=== PATIENT | male | born 1995 | race African-American/Black ===

== ENCOUNTER 2019-08-01 19:33 | Emergency (ER) | payer OTHER ==
[~2019-08-01] VITALS: Ht 167.6 cm; Wt 63.6 kg
[2019-08-01 19:34] VITALS: BP 131/73
[2019-08-01] MEDS ORDERED: AUGMENTIN 875 MG TAB PO ONE (20:30)
[2019-08-01] MEDS ORDERED: AUGM875T28 PO (20:38)
[2019-08-02] MEDS ORDERED: AMOX875T2 PO (02:06)
== END 2019-08-01 20:43 | disposition home or self-care (01) ==
LOC: M ED 19:33
DX: J32.0 Chronic maxillary sinusitis (principal); H66.92 Otitis media, unspecified, left ear

== ENCOUNTER 2019-08-02 00:32 | Observation (INO) | payer OTHER ==
[~2019-08-02] VITALS: Ht 167.6 cm; Wt 62.0 kg
[~2019-08-02 00:32] MED LIST: AUGM875T28 PO
[2019-08-02] MEDS ORDERED: AMOX875T2 PO (02:06)
--- NOTE | 2019-08-02 02:28 | HPEPDOC ---
[facility] Medical History & Physical Date of Admission Aug 02, 2019 Date of Service: Aug 02, 2019 Attending Physician: GISSELLE LEONARDO MD History and Physical CHIEF COMPLAINT: Shortness of breath and cough HISTORY OF PRESENT ILLNESS: 24-year-old male with no significant past medical hi story presents with shortness of breath. His symptoms began 1 week ago, has an associate of cough productive of sputum along with pleuritic chest pain with deep inspiration and coughing. He presented to the emergency department earlier today with shortness of breath, was sent home on antibiotics but returns with worsening dyspnea. He denies any sick contacts, no recent travel. He has no additional complaints other than was listed above. He denies any nausea, vomiting, diarrhea, constipation or fever. 10 point review of system is negative except for above PAST MEDICAL HISTORY: 1. None. PAST SURGICAL HISTORY: 1. Appendectomy. SOCIAL HISTORY: Denies smoking. Denies alcohol use. Denies drug use FAMILY HISTORY: Positive for heart disease ALLERGIES: Please see below. HOME MEDICATIONS: Please see below. PHYSICAL EXAMINATION: VITAL SIGNS: Please see below. GENERAL: No distress HEENT: Normocephalic, atraumatic, moist mucous membranes NECK: Supple CARDIOVASCULAR EXAMINATION: S1, S2, no murmurs RESPIRATORY EXAMINATION: Scattered rhonchi, no wheezing ABDOMINAL EXAMINATION: Soft, nontender, nondistended, positive bowel sounds EXTREMITIES: Range of motion intact SKIN: No rash NEUROLOGICAL EXAMINATION: Alert and oriented 3, no focal deficits PSYCHIATRIC EXAMINATION: Calm and cooperative LABORATORY DATA: See below. IMAGING: Chest x-ray showing patchy infiltrates MICROBIOLOGY: Please see below. ASSESSMENT: 24-year-old male with no significant past medical history is being admitted for pneumonia. PLAN: 1. Pneumonia. Symptoms consistent with pneumonia, x-ray showing patchy infiltrates, ceftriaxone/doxycycline, cultures pending. Vital Signs Vital Signs Date Time Temp Pulse Resp B/P (MAP) Pulse Ox O2 Delivery O2 Flow Rate FiO2 08/02/19 00:32 98.1 87 20 122/70 (87) 97 Room Air Laboratory Data Labs 24H Laboratory Tests 2 08/02/19 01:29: POC pH (Misc Panel) 7.375, POC Base Excess (Misc Panel) 2.0, POC Saturated Percent O2 (Misc) 93L, POC pO2 (Misc Panel) 69.0L, POC pCO2 (Misc Panel) 46.1H, POC HCO3 (Misc Panel) 26.9H, POC Total CO2 (Misc Panel) 28.0H Home Medications Scheduled Amoxicillin/Potassium Clav (Amox-Clav 875-125 mg Tablet) 1 Each Tablet, 1 TAB PO BID written 08/01/19 for 10 days patient has not picked up yet Allergies Coded Allergies: No Known Allergies (Unverified , 08/01/19) A-FIB/CHADSVASC A-FIB History Current/History of A-Fib/PAF?: No GISSELLE LEONARDO MD Aug 02, 2019 02:28
[2019-08-02 03:07] LABS: BASO # 0.1 10^3/uL (0.0-0.2); BASO % 0.8 % (0.0-1.0); EOS # 0.6 10^3/uL (0.0-0.5); EOS % 8.8 % (0.0-3.0); HEMATOCRIT 50.4 % (42.0-52.0); HEMOGLOBIN 17.4 g/dl (13.5-17.5); LYMPH # 2.1 10^3/uL (1.5-5.0); LYMPH % 32.2 % (24.0-44.0); MEAN CORPUSCULAR HEMOGLOBIN 31.8 pg (27.0-33.0); MEAN CORPUSCULAR HGB CONC 34.5 g/dl (32.0-36.5); MONO # 0.6 10^3/uL (0.0-0.8); MONO % 8.9 % (0.0-5.0); NEUTROPHILS # 3.3 10^3/uL (1.5-8.5); NEUTROPHILS % 49.1 % (36.0-66.0); PLATELET COUNT, AUTOMATED 240 10^3/uL (150-450); RED BLOOD COUNT 5.48 10^6/uL (4.30-6.10); WHITE BLOOD COUNT 6.6 10^3/uL (4.0-10.0)
[2019-08-02 03:25] LABS: BLOOD UREA NITROGEN 7 MG/DL (7-18); CALCIUM LEVEL 9.2 MG/DL (8.5-10.1); CARBON DIOXIDE LEVEL 34 MEQ/L (21-32); CHLORIDE LEVEL 101 MEQ/L (98-107); CK-MB VALUE MASS 1.3 NG/ML (<3.6); CPK CREATINE PHOSPHOKINASE 188 U/L (39-308); CREATININE FOR GFR 1.04 MG/DL (0.70-1.30); GLOMERULAR FILTRATION RATE > 60.0 (>60); GLUCOSE, FASTING 75 MG/DL (70-100); LDH LACTATE DEHYDROGENASE 204 U/L (87-241); MB/CK RELATIVE INDEX 0.69 (< OR =4); POTASSIUM SERUM 3.8 MEQ/L (3.5-5.1); SODIUM LEVEL 136 MEQ/L (136-145); TROPONIN I < 0.02 NG/ML (< 0.10)
[2019-08-02] MEDS: cefTRIAXone SOD 1 GM in D5W MINI-BAG PLUS 50 ML IV SCH (03:35)
[2019-08-02 04:45] VITALS: BP 131/83
[2019-08-02] MEDS: DOXYCYCLINE HYCLATE 100MG TABLET PO SCH ×2 (08:24→20:09)
--- NOTE | 2019-08-02 11:37 | REP ---
Single view chest: 08/02/2019. Indication: Dyspnea. Comparison: None. Findings: The lungs are clear. There is no pleural effusion or pneumothorax. The cardiac silhouette is unremarkable. Impression: Clear lungs. Electronically Signed by Jamir Wallis DO 08/02/2019 11:28 A
--- NOTE | 2019-08-02 12:31 | IPNPDOC ---
Text Note Date of Service The patient was seen on 08/02/19. NOTE Subjective: Patient seen and examined at bedside. No acute overnight events. Feels his shortness of breath is still problematic, but improving. No other medical complaints. Objective: General; NAD, lying comfortably in bed HEENT: NC/AT, EOMI Lungs: coarse breath sounds Abd: soft, NT, +BS Ext: no edema A/P: 24-year-old male with no significant past medical history is being admitted for pneumonia. # possible Pneumonia. x-ray showing patchy infiltrates, currently on ceftriaxone/doxycycline, cultures pending. - ct chest for further evaluation - IS/acapella #pericarditis - currently on colchicine/NSAID #DVT prophylaxis - not indicated VS,Fishbone, I+O VS, Fishbone, I+O Laboratory Tests 08/02/19 02:46 Vital Signs Date Time Temp Pulse Resp B/P (MAP) Pulse Ox O2 Delivery O2 Flow Rate FiO2 08/02/19 04:45 98.6 70 20 131/83 (99) 93 Room Air I&O- Last 24 Hours up to 6 AM 08/02/19 06:00 Intake Total 170 ml Output Total 0 ml Balance 170 ml MO SCHNEIDER MD Aug 02, 2019 12:31
[2019-08-02] MEDS ORDERED: ISOVUE-370 76% 100ML VIAL As Ordered ONE (12:50)
[2019-08-02 14:00] VITALS: BP 130/82
--- NOTE | 2019-08-02 16:57 | REP ---
CT chest: 08/02/2019. Indication: Dyspnea. Technique: Axial CT images of the chest were obtained following IV administration of iodinated contrast with coronal and sagittal reconstructions provided. Comparison: No previous chest CTs are available for direct comparison. Findings: The lungs are clear. There is no pleural effusion or pneumothorax. The mediastinal and cardiac anatomy is normal. No vascular abnormalities are detected. The chest wall is unremarkable as well. Impression: Unremarkable chest CT. Electronically Signed by Jamir Wallis DO 08/02/2019 04:49 P
[2019-08-02 21:29] VITALS: BP 124/76
[2019-08-02] MEDS ORDERED: COLCHICINE 0.6 MG TAB PO ONE (22:15)
[2019-08-02] MEDS: IBUPROFEN 600MG TAB PO PRN (22:33)
[2019-08-03] MEDS: cefTRIAXone SOD 1 GM in D5W MINI-BAG PLUS 50 ML IV SCH (03:43)
[2019-08-03 06:07] VITALS: BP 105/56
[2019-08-03 06:40] LABS: HEMATOCRIT 48.7 % (42.0-52.0); HEMOGLOBIN 16.8 g/dl (13.5-17.5); MEAN CORPUSCULAR HEMOGLOBIN 31.2 pg (27.0-33.0); MEAN CORPUSCULAR HGB CONC 34.5 g/dl (32.0-36.5); MEAN CORPUSCULAR VOLUME 90.4 fl (80.0-96.0); PLATELET COUNT, AUTOMATED 225 10^3/uL (150-450); RED BLOOD COUNT 5.39 10^6/uL (4.30-6.10); WHITE BLOOD COUNT 5.2 10^3/uL (4.0-10.0)
[2019-08-03 07:02] LABS: ALBUMIN 3.9 GM/DL (3.2-5.2); ALT/SGPT 26 U/L (12-78); BLOOD UREA NITROGEN 14 MG/DL (7-18); CALCIUM LEVEL 9.4 MG/DL (8.5-10.1); CARBON DIOXIDE LEVEL 29 MEQ/L (21-32); CHLORIDE LEVEL 102 MEQ/L (98-107); CREATININE FOR GFR 1.08 MG/DL (0.70-1.30); GLOMERULAR FILTRATION RATE > 60.0 (>60); GLUCOSE, FASTING 84 MG/DL (70-100); MAGNESIUM LEVEL 2.2 MG/DL (1.8-2.4); POTASSIUM SERUM 4.4 MEQ/L (3.5-5.1); SODIUM LEVEL 136 MEQ/L (136-145); TOTAL PROTEIN 7.9 GM/DL (6.4-8.2)
[2019-08-03] MEDS: COLCHICINE 0.6 MG TAB PO SCH (08:56)
[2019-08-03] MEDS: DOXYCYCLINE HYCLATE 100MG TABLET PO SCH (08:56)
[2019-08-03] MEDS: IBUPROFEN 600MG TAB PO PRN (12:50)
[2019-08-03 14:00] VITALS: BP 121/67
--- NOTE | 2019-08-03 15:25 | IPNPDOC ---
Date Seen The patient was seen on 08/03/19. Progress Note SUBJECTIVE: Patient was seen and examined this morning. He was admitted for a possible pneumonia although imaging has been negative. Per the patient he had a respiratory tract infection that had started about a week ago. He had presented to the ER at that time and was prescribed antibiotics for a possible sinus infection. 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 He came to [facility] for chest discomfort and some shortness of breath. He states that he has sharp pain over the left side of his chest. He is unsure if leaning forward makes this pain worse however states that it is increased with deep breath. Additionally he has admitted to some loose stools overnight. There have otherwise been no adverse events reported OBJECTIVE PHYSICAL EXAMINATION: VITAL SIGNS: Please see below. GENERAL: Awake, alert, and oriented. Appears in no acute distress. Lying in bed HEENT: Atraumatic. Normocephalic. Eyes are nonicteric. Trachea is midline. Mucous membranes are pink and moist CARDIOVASCULAR: Normal S1, S2. regular rate and rhythm. No clicks rubs or murmurs. RESPIRATORY: Clear vesicular breath sounds bilaterally. No wheezes, rhonchi, or rales. Symmetric chest expansion ABDOMINAL: soft, nondistended. Nontender. Normoactive bowel sounds EXTREMITIES: No edema. Full and equal pulses in bilateral upper and lower extremities NEUROLOGICAL: No focal neurological deficits PSYCHOLOGICAL: Mood and affect appear appropriate LABORATORY DATA, IMAGING STUDIES, MICROBIOLOGY: Please see below. Echocardiogram: Pending DVT prophylaxis ordered?: TEDs/Sequentials ASSESSMENT AND PLAN: Patient is a 24 year old male who presented to the [facility] ER with complaint of shortness of breath and chest pain. He was treated for pnuemonia on presentation PROBLEMS: 1. Chest Pain and Shortness of breath 2/2 Viral Pericarditis -Patient had complained of subjective shortness of breath. He has never been hypoxic or required supplemental oxygen. He does have chest pain that is described as sharp. His symptoms are unlikely to be pneumonia and more consistent with Pericarditis likely from a viral URI which is consistent with the history that he provides -No leukocytosis, afebrile, procalcitonin of 0.02. Bacterial pneumonia is unlikely. Antibiotics will be discontinued -Colchicine and Ibuprofen to be continued as ordered by night team -EKG negative. Troponins negative. Echocardiogram pending 2. DVT Prophylaxis DISPOSITION: Likely discharge in 24 hours pending clinical improvement As preceptor for this patient I was fully available. All aspects of the patient interview, examination, medical decision making process, and medical care plan development were reviewed and approved. Aware and concur with the plan as stated in the body of this note and will attest to such by my cosignature. VS, I&O, 24H, Fishbone Vital Signs/I&O Vital Signs Date Time Temp Pulse Resp B/P (MAP) Pulse Ox O2 Delivery O2 Flow Rate FiO2 08/03/19 06:07 97.8 62 17 105/56 (72) 98 Room Air I&O- Last 24 Hours up to 6 AM 08/03/19 05:59 Intake Total 2370 ml Output Total 0 ml Balance 2370 ml Laboratory Data 24H LABS Laboratory Tests 2 08/03/19 06:20: Nucleated Red Blood Cells % (auto) 0.0, Anion Gap 5L, Glomerular Filtration Rate > 60.0, Calcium Level 9.4, Magnesium Level 2.2, Total Bilirubin 1.0, Aspartate Amino Transf (AST/SGOT) 31, Alanine Aminotransferase (ALT/SGPT) 26, Alkaline Phosphatase 103, Total Protein 7.9, Albumin 3.9, Albumin/Globulin Ratio 1.0 CBC/BMP Laboratory Tests 08/03/19 06:20 Microbiology Microbiology 08/02/19 Blood Culture - Preliminary, Resulted No growth after 24 hours . All specim... 08/02/19 Respiratory Virus Panel (PCR) (TOBIAS) - Final, Complete DARCIE THOMAS DO Aug 03, 2019 15:24 MO SCHNEIDER MD Aug 10, 2019 12:28
[2019-08-03 20:44] VITALS: BP 122/66
--- NOTE | 2019-08-03 21:06 | ECGEPIP ---
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
--- NOTE | 2019-08-03 23:17 | ECHO ---
DATE OF PROCEDURE: 08/03/2019 REFERRING PHYSICIAN: Dr. Myles INDICATION: Pericardial chest pain. Height 167 cm, weight 62 kg. DIMENSIONS: IVS: 1.0 LV: 3.7 LVPW: 0.9 LA: 2.7 Aorta: 2.5 IVC: 1.2 Mitral E wave velocity: 72 A wave: 48 E prime septal: 11.3 E prime lateral: 13.1 FINDINGS: The study is of excellent technical quality. The patient is in sinus rhythm. Normal left ventricular (LV) size and normal LV systolic function, estimated left ventricular ejection fraction (LVEF) 60-65%. Right ventricle is also normal size and systolic function. Both atria appear normal. All four cardiac valves were well seen and appear normal. No pericardial effusion is noted. Inferior vena cava is normal size and appropriately collapses with respiration indicative of normal central venous pressure. Aortic root, aortic arch and visualized segment of abdominal aorta all appear normal. Doppler interrogation reveals competent mitral and aortic valves. There is trace tricuspid and trace pulmonic insufficiency. Calculated pulmonary artery pressure is within normal limits. Mitral inflow pattern and tissue Doppler imaging of mitral annulus revealed normal diastolic function. CONCLUSIONS: 1. Study is of excellent technical quality, the patient is in sinus rhythm. 2. Normal LV size, systolic and diastolic function. 3. No significant valvular disease. 4. Normal central venous pressure and normal pulmonary artery pressure. 5. No pericardial effusion. 6. Normal echocardiogram.
[2019-08-04 05:46] VITALS: BP 118/66
[2019-08-04] MEDS: COLCHICINE 0.6 MG TAB PO SCH (08:02)
[2019-08-04 08:45] LABS: HEMATOCRIT 48.6 % (42.0-52.0); HEMOGLOBIN 17.2 g/dl (13.5-17.5); MEAN CORPUSCULAR HEMOGLOBIN 31.9 pg (27.0-33.0); MEAN CORPUSCULAR HGB CONC 35.4 g/dl (32.0-36.5); MEAN CORPUSCULAR VOLUME 90.2 fl (80.0-96.0); PLATELET COUNT, AUTOMATED 226 10^3/uL (150-450); RED BLOOD COUNT 5.39 10^6/uL (4.30-6.10)
[2019-08-04 09:06] LABS: BLOOD UREA NITROGEN 10 MG/DL (7-18); C REACTIVE PROTEIN QUANTITATIV < 0.30 MG/DL (0.00-0.30); CALCIUM LEVEL 8.9 MG/DL (8.5-10.1); CARBON DIOXIDE LEVEL 29 MEQ/L (21-32); CHLORIDE LEVEL 104 MEQ/L (98-107); CREATININE FOR GFR 1.08 MG/DL (0.70-1.30); GLOMERULAR FILTRATION RATE > 60.0 (>60); GLUCOSE, FASTING 87 MG/DL (70-100); POTASSIUM SERUM 4.2 MEQ/L (3.5-5.1); SODIUM LEVEL 138 MEQ/L (136-145)
[2019-08-04] MEDS ORDERED: IBUP200C25 PO (11:22)
[2019-08-04] MEDS ORDERED: COLC1TAB13 PO (11:22)
[2019-08-04] MEDS ORDERED: PROT1TAB2 PO (11:22)
--- NOTE | 2019-08-04 21:48 | DS.PDOC ---
Discharge Summary General Date of Admission Aug 02, 2019 at 02:09 Date of Discharge 08/04/2019 Specialist/Consultants Involve: PAUL FOREMAN MD Discharge Summary PROCEDURES PERFORMED DURING STAY: [None]. ADMITTING DIAGNOSES: 1. Pericarditis DISCHARGE DIAGNOSES: 1. Pericarditis COMPLICATIONS/CHIEF COMPLAINT: Pneumonia. HISTORY OF PRESENT ILLNESS: Patient is a 24 year old male who presented to the [facility] ER with complaint of shortness of breath and chest pain. He had presented to Urgent care for upper respiratory type symptoms and was told that he may have a sinus infection. He stated that he never picked up the antibiotics however, soon developed shortness of breath and chest pain. He described the chest pain as sharp. He denied any improvement of the pain with leaning forward. On presentation to the ER the patient was vitally stable. His labs were unremarkable. Hospitalist service was consulted and the patient was admitted for further evaluation and management HOSPITAL COURSE: During the patients hospitalization he was started on empiric antibiotics. The patient symptoms were not felt to be from pneumonia and more likely a pericarditis likely from a previous URI. The patient was started on colchicine and ibuprofen. In the subsequent days he noted improvement in his symptoms. He received an echocardiogram which was unremarkable. He was discharged home with recommendations to continue colchicine and ibuprofen for 4 weeks and to get reevaluated by Cardiology and his PCP at that time DISCHARGE MEDICATIONS: Please see below. ALLERGIES: Please see below. PHYSICAL EXAMINATION ON DISCHARGE: VITAL SIGNS: Please see below. GENERAL: Awake, alert, and oriented. Appears in no acute distress. Lying in bed HEENT: Atraumatic. Normocephalic. Eyes are nonicteric. Trachea is midline. Mucous membranes are pink and moist CARDIOVASCULAR: Normal S1, S2. regular rate and rhythm. No clicks rubs or murmurs. RESPIRATORY: Clear vesicular breath sounds bilaterally. No wheezes, rhonchi, or rales. Symmetric chest expansion ABDOMINAL: soft, nondistended. Nontender. Normoactive bowel sounds EXTREMITIES: No edema. Full and equal pulses in bilateral upper and lower extremities NEUROLOGICAL: No focal neurological deficits PSYCHOLOGICAL: Mood and affect appear appropriate LABORATORY DATA: Please see below. IMAGING: Single view chest: 08/02/2019. Indication: Dyspnea. Comparison: None. Findings: The lungs are clear. There is no pleural effusion or pneumothorax. The cardiac silhouette is unremarkable. Impression: Clear lungs. Electronically Signed by Jamir Wallis DO 08/02/2019 11:28 CT chest: 08/02/2019. Indication: Dyspnea. Technique: Axial CT images of the chest were obtained following IV administration of iodinated contrast with coronal and sagittal reconstructions provided. Comparison: No previous chest CTs are available for direct comparison. Findings: The lungs are clear. There is no pleural effusion or pneumothorax. The mediastinal and cardiac anatomy is normal. No vascular abnormalities are detected. The chest wall is unremarkable as well. Impression: Unremarkable chest CT. Electronically Signed by Jamir Wallis DO 08/02/2019 04:49 P DATE OF PROCEDURE: 08/03/2019 REFERRING PHYSICIAN: Dr. Myles INDICATION: Pericardial chest pain. Height 167 cm, weight 62 kg. DIMENSIONS: IVS: 1.0 LV: 3.7 LVPW: 0.9 LA: 2.7 Aorta: 2.5 IVC: 1.2 Mitral E wave velocity: 72 A wave: 48 E prime septal: 11.3 E prime lateral: 13.1 FINDINGS: The study is of excellent technical quality. The patient is in sinus rhythm. Normal left ventricular (LV) size and normal LV systolic function, estimated left ventricular ejection fraction (LVEF) 60-65%. Right ventricle is also normal siz e and systolic function. Both atria appear normal. All four cardiac valves were well seen and appear normal. No pericardial effusion is noted. Inferior vena cava is normal size and appropriately collapses with respiration indicative of normal central venous pressure. Aortic root, aortic arch and visualized segment of abdominal aorta all appear normal. Doppler interrogation reveals competent mitral and aortic valves. There is trace tricuspid and trace pulmonic insufficiency. Calculated pulmonary artery pressure is within normal limits. Mitral inflow pattern and tissue Doppler imaging of mitral annulus revealed normal diastolic function. CONCLUSIONS: 1. Study is of excellent technical quality, the patient is in sinus rhythm. 2. Normal LV size, systolic and diastolic function. 3. No significant valvular disease. 4. Normal central venous pressure and normal pulmonary artery pressure. 5. No pericardial effusion. 6. Normal echocardiogram. PROGNOSIS: GOOD ACTIVITY: [As tolerated]. DIET: Tolerated DISCHARGE PLAN: Patient is to be discharged home. He is to continue Colchicine and ibuprofen for 4 weeks. He is to start Protonix daily during that time for GI prophylaxis. He is to follow-up with his PCP. Recommendations for referral to Cardiology for potential extended treatment for his pericarditis and/or repeat echocardiogram if clinically appropriate DISPOSITION: 01 Home, Self-Care. DISCHARGE CONDITION: [Stable]. TIME SPENT ON DISCHARGE: Greater than 35 minutes. Vital Signs/I&Os Vital Signs Date Time Temp Pulse Resp B/P (MAP) Pulse Ox O2 Delivery O2 Flow Rate FiO2 08/04/19 05:46 97.8 62 18 118/66 (83) 96 Room Air I&O- Last 24 Hours up to 6 AM 08/04/19 05:59 Intake Total 1740 ml Output Total 1550 ml Balance 190 ml Laboratory Data Labs 24H Laboratory Tests 2 08/04/19 08:16: Nucleated Red Blood Cells % (auto) 0.0, Anion Gap 5L, Glomerular Filtration Rate > 60.0, Calcium Level 8.9, C-Reactive Protein, Quantitative < 0.30 CBC/BMP Laboratory Tests 08/04/19 08:16 Microbiology Microbiology 08/02/19 Blood Culture - Preliminary, Resulted No Growth after 48 hours. All Specime... 08/02/19 Respiratory Virus Panel (PCR) (TOBIAS) - Final, Complete Discharge Medications Scheduled Colchicine (Colchicine) 0.6 Mg Tablet, 0.6 MG PO DAILY Take 1 Tab Daily for 4 weeks. Ibuprofen (Ibuprofen) 200 Mg Capsule, 200 MG PO BID Take 1 capsule twice a day Pantoprazole Sodium (Protonix) 40 Mg Tablet.dr, 40 MG PO DAILY Take 1 tab daily for 4 weeks Allergies Coded Allergies: No Known Allergies (Unverified , 08/01/19) GME ATTESTATION GME ATTESTATION My faculty preceptor for this patient encounter was physically present during the encounter and was fully available. All aspects of the patient interview, examination, medical decision making process, and medical care plan development were reviewed and approved by the faculty preceptor. The faculty preceptor is aware and concurs with the plan as stated in the body of this note and will attest to such by his/her cosignature. ATTENDING NOTE PT WAS SEEN AND EXAMINED BY ME, AGREE WITH THE ABOVE ASSESSMENT AND PLAN. DARCIE THOMAS DO Aug 04, 2019 21:48 PAUL FOREMAN MD Aug 07, 2019 14:16
== END 2019-08-04 13:30 | disposition home or self-care (01) ==
LOC: M ED 00:32 → M ED INP 02:09 → ENRESERV 04:17 → M MS5PR 04:45
PROVIDERS: ADMIT Internal Medicine; ATTEND Internal Medicine
DX: I30.9 Acute pericarditis, unspecified (principal); J18.9 Pneumonia, unspecified organism
CPT/HCPCS: 36415; 36600; 71045; 71260; 80048; 80053; 82550; 82553; 82803; 83615; 83735; 84145; 84484; 85025; 85027; 85379; 86140; 87040; 87486; 87581; 87633; 87798; 93005; 93306; 96365; 96366; 99284; J0696; Q9967

== ENCOUNTER 2020-03-08 02:14 | Emergency (ER) | payer OTHER ==
[~2020-03-08] VITALS: Ht 167.6 cm; Wt 60.8 kg
[~2020-03-08 02:14] MED LIST changes: +AMOX875T2 PO; +COLC0.6T47 PO; +IBUP200C25 PO; +PROT1TAB2 PO
--- OUTSIDE RECORDS SUMMARY | 2020-03-08 02:23 | CCD | Continuity of Care Document ---
Author Author Crow SOMERS MD Organization Unknown Address [place] [address] Phone [phone] Care Team Providers Care Diversity Intern Name Role Phone DeisimartinBrooks PA-C AUTM [phone] Problems Active Problems Provider Date Precordial pain Storm Somers MD Onset: 11/23/2019 Electrocardiogram abnormal Storm Somers MD Onset: 2019 First degree atrioventricular block Storm Somers MD Onse t: 11/23/2019 Dyspnea Storm Somers MD Onset: 11/23/2019 Social History Type Date Description Comments Sex Unknown ETOH Use Does not consume alcohol Tobacco Use Start: Unknown Patient has never smoked Smoking Status Reviewed: 11/23/19 Patient has never smoked Exercise Type/Frequency Fully active: Ab le to carry on all performance without restriction PT 5x weekly Exercise Limitations Shortness Of Breath Exercise Limitations Chest Pain Allergies, Adverse Reactions, Alerts Description No Known Drug Allergies Medications Active Medications SIG Qnty Indications Ordering Provide r Date Meloxicam 15mg Tablets 1 by mouth every day 30tabs R07.2 Storm Somers MD 11/23/[address] 1 by mouth every day 30caps R07.2 Storm Somers MD 11/23/2019 History Medications No Active Medications Unknown 06/2019 - 11/23/2019 Immunizations Description No Information Available Vital Signs Date Vital Result Comment 01/04/2020 8:08am Weight 128.00 lb Height 66 inches 5'6" BMI (Body Mass Index) 20.7 kg/m2 Heart Rate 72 /min regular Respiratory Rate 16 /min BP Systolic Sitting 103 mmHg Medium cuff, Ra BP Diastolic Sitting 56 mmHg Medium cuff, Ra BP Systolic Lying Down 92 mmHg BP Diastolic Lying Down 56 mmHg 11/23/2019 11:29am Weight 141.00 lb Height 66 inches 5'6" BMI (Body Mass Index) 22.8 kg/m2 Heart Rate 76 /min regular Respiratory Rate 16 /min BP Systolic Sitting 112 mmHg Medium cuff, Ra; 110 /74 LA BP Diastolic Sitting 72 mmHg Medium cuff, Ra; 11 0/74 LA BP Systolic Lying Down 108 mmHg Rad BP Diastolic Lying Down 68 mmHg Rad O2 % BldC Oximetry 97 % O2 Saturation Level with Exercise 98 % Results Test Acquired Date Facility Test Result H/L Range Note CBC W/Auto Differential 11/23/2019 [facility] Hemoglobin Blood 15.9 Hematocrit 46.7 MCV (Corpuscular Volume) 92.6 MCH (Corpuscular Hemoglobin) 31.4 MCHC (Corpuscular Hemog Conc) 34.0 RDW 14.0 Platelet Count Blood Auto CNT 211 MPV 8.1 Neutrophils 31.8 Fluid Bands -- Fluid Lymphocytes 53.0 Monocytes 11.5 Fluid Body Eosinophils 2.90 Basophils % 0.80 Absolute Basophils 0.00 Absolute Eosinophils 0.10 Absolute Lymphocytes 2.30 Absolute Monocytes 0.50 Absolute Neutrophils Auto CNT 1.40 Laboratory test finding 11/23/2019 [facility] Sedimentation Rate 1 Teresa & Rheumatoid Factor 11/23/2019 [facility] Rheumatoid Factor Ser QN NEGATIVE Basic Metabolic Panel 08/04/2019 [facility] - not interfac ed (315)- - Glucose 87 83-110 Blood Urea Nitrogen 10 7-18 Creatinine 1.08 0.70-1.30 Sodium 138 136-145 Potassium 4.2 3.5-5.1 Chloride 106 98-107 Carbon Dioxide 29 21-32 Calcium 8.9 8.2-9.6 GFR (Calculated) >60.0 >32 Laboratory test finding 08/04/2019 [facility] - not interf aced (315)- - C-Reactive Protein <0.30 CBC without Differential 08/04/2019 [facility] - not inter faced (315)- - White Blood Count 5.0 4.0-10.0 Red Blood Count 5.39 4.30-6.10 Platelets 226 172-450 Hemoglobin 17.2 Hematocrit 48.6 Procedures Date Code Description Status 12/16/2019 29412 Treadmill/Pharmacological Monito ring Completed 11/23/2019 31604 ECG 12-Lead Completed Medical Devices Description No Information Available Encounters Type Date Location Provider Dx Diagnosis Office Visit 01/04/2020 8:00a Main Office Storm Somers MD R07.2 Precordial pain R06.00 Dyspnea, unspecified I44.0 Atrioventricular block, firs t degree R94.31 Abnormal electrocardiogram [ ECG] [EKG] Office Visit 11/23/2019 11:00a Main Office Storm Somers MD R07.2 Precordial pain R06.02 Shortness of breath I44.0 Atrioventricular block, firs t degree R94.31 Abnormal electrocardiogram [ ECG] [EKG] Assessments Date Code Description Provider 01/04/2020 R07.2 Precordial pain Storm Somers MD 01/04/2020 R06.00 Dyspnea, unspecified Storm saldana MD 01/04/2020 I44.0 Atrioventricular block, first Trujillo MD 01/04/2020 R94.31 Abnormal electrocardiogram [ECG] [EKG] Storm Somers MD 12/16/2019 R07.2 Precordial pain Stress Nuclear/R eg Treadmill 12/16/2019 R06.00 Dyspnea, unspecified Stress Nucl ear/Reg Treadmill 12/16/2019 R94.31 Abnormal electrocardiogram [ECG] [EKG] Stress Nuclear/Reg Treadmill 12/16/2019 I44.0 Atrioventricular block, first de herminia Stress Nuclear/Reg Treadmill 11/23/2019 R07.2 Precordial pain Storm Somers MD 11/23/2019 R06.02 Shortness of breath Storm lai MD 11/23/2019 I44.0 Atrioventricular block, first Cassandra MD 11/23/2019 R94.31 Abnormal electrocardiogram [ECG] [EKG] Storm Somers MD Plan of Treatment 01/04/2020 - Storm Somers MD* R07.2 Precordial pain* Recommendations:* With the negative results of his inflammatory blood work, his prognosis is favor able. In the absence of any pericardial rub or sign of tamponade, and localized chest wall tenderness, I would not be inclined to use prednisone. Would continue with symptomatic therapy. His prognosis is favorable. * R06.00 Dyspnea, unspecified* Recommendations:* As per assessment #1. * I44.0 Atrioventricular block, first degree* Recommendations:* No special measures or restrictions would be deemed necessary. * R94.31 Abnormal electrocardiogram [ECG] [EKG]* Recommendations:* As per assessment #3. * All * Comments:* Thank you for allowing me to participate in the care of your patient. Best regards. * Follow up:* We have not scheduled a specific followup appointment for him here but would be pleased to reassess him at any time. Functional Status Functional Condition Comment Date Status Independent with all ADL's Activ e Mental Status Description No Information Available Referrals Refer to Dr Reason for Referral Status Appt Date Storm Somers MD 1 CLT AUTH VALID 08/01/19 - 01/28/20. [place] Cre at[facility] [address] [place] [address] [id number] [phone] Storm Somers MD 3 OV VALID 08/01/19 - 07/31/20. [place] Created [id number] [facility] [id number] [phone]
--- OUTSIDE RECORDS SUMMARY | 2020-03-08 02:24 | CCD | Continuity of Care Document ---
Author Author Stress Nuclear/Reg Treadmill , Crow Cerda Organization Unknown Address [address] [facility], [place] [address] Phone [phone] Care Team Providers Care Creative/Art Director Name Role Phone Brooks Jordan PA-C AUTM [phone] Problems Active Problems Provider Date Precordial pain [...] Available Vital Signs Date Vital Result Comment 11/23/2019 11:29am Weight 141.00 lb Height 66 [...] Date Facility Test Result H/L Range Note Basic Metabolic Panel 08/04/2019 [facility] - not interfac ed (315)- - Glucose 87 83-110 Blood Urea Nitrogen 10 7-18 Creatinine 1.08 0.70-1.30 Sodium 138 136-145 Potassium 4.2 3.5-5.1 Chloride 106 98-107 Carbon Dioxide 29 21-32 Calcium 8.9 8.2-9.6 GFR (Calculated) >60.0 >32 Laboratory test finding 08/04/2019 [facility] - not interf aced (315)- - C-Reactive Protein <0.30 CBC without Differential 08/04/2019 [facility] - not inter faced (315)- - White Blood Count 5.0 4.0-10.0 Red Blood Count 5.39 4.30-6.10 Platelets 226 172-450 Hemoglobin 17.2 Hematocrit 48.6 Procedures Date Code Description Status 12/16/2019 00648 Treadmill/Pharmacological Monito ring Completed 11/23/2019 97233 ECG 12-Lead Completed Medical Devices Description No Information Available Encounters Type Date Location Provider Dx Diagnosis Office Visit 11/23/2019 11:00a Main Office Storm Somers MD R07.2 Precordial pain R06.02 Shortness of breath I44.0 Atrioventricular block, firs t degree R94.31 Abnormal electrocardiogram [ ECG] [EKG] Assessments Date Code Description Provider 12/16/2019 R07.2 Precordial pain Stress Nuclear/R eg Treadmill 12/16/2019 R06.00 Dyspnea, unspecified Stress Nucl ear/Reg Treadmill 12/16/2019 R94.31 Abnormal electrocardiogram [ECG] [EKG] Stress Nuclear/Reg Treadmill 12/16/2019 I44.0 Atrioventricular block, first de gree Stress Nuclear/Reg Treadmill 11/23/2019 R07.2 Precordial pain Storm Somers MD 11/23/2019 R06.02 Shortness of breath Storm lai MD 11/23/2019 I44.0 Atrioventricular block, first de gree Storm Somers MD 11/23/2019 R94.31 Abnormal electrocardiogram [ECG] [EKG] Storm Somers MD Plan of Treatment Future Appointment(s):* 01/04/2020 8:00 am - Storm Somers MD at Main Office 11/23/2019 - Storm Somers MD* R07.2 Precordial pain* New Medication:* Meloxicam 15 mg - 1 by mouth every day * Omeprazole 40 mg - 1 by mouth every day * New Labs:* CBC W/Auto Differential, Scheduled: 11/23/19 * Sedimentation Rate, Scheduled: 11/23/19 * Teresa & Rheumatoid Factor, Scheduled: 11/23/19 * Recommendations:* Have recommended follow-up complete blood count, sedimentation rate, and screen for inflammatory arthritic disease. Would encourage temporarily avoiding upper extremity exercise i.e. push-ups or weight lifting. Have prescribed a trial of meloxicam 15 mg daily with GI prophylaxis omeprazole 40 mg daily. * R06.02 Shortness of breath* Recommendations:* As per assessment #1. * I44.0 Atrioventricular block, first degree* Recommendations:* Have suggested a treadmill study to assess the functional integrity of antegrade AV conduction. * R94.31 Abnormal electrocardiogram [ECG] [EKG]* Recommendations:* In the absence of coronary risk factors, I suspect his stress study will confirm a favorable coronary prognosis. With his recent normal echocardiographic findin gs, we know his prominent precordial voltage is related to his age; not left ventricular hypertrophy. * All * Comments:* I will ensure that the aforementioned test findings are reported to you along with any further recommendations. Thank you for allowing me to participate in the care of your patient. Best regards. * Follow up:* Pending test findings, have suggested a follow-up Clinic visit with EKG in 1 month to assess the efficacy of his new anti-inflammatory regimen. Functional Status Functional Condition Comment Date Status Independent with all ADL's Activ e Mental Status Description No Information Available Referrals Refer to Reason for Referral Status Appt Date Storm Somers MD 1 CLT AUTH VALID 08/01/19 - 01/28/20. [place] [address] [place] [phone] Storm Somers MD 3 OV VALID 08/01/19 - 07/31/20. [place] [address] [place] [phone]
--- OUTSIDE RECORDS SUMMARY | 2020-03-08 02:24 | CCD | Continuity of Care Document ---
Author Author Crow SOMERS MD Organization Unknown Address [facility] [place] [address] Phone [phone] Care Team Providers Care Ethylene Plant Operator Name Role Phone DeisimartinBrooks PA-C AUTM [phone] Problems Active Problems Provider Date Precordial pain [...] Ser QN NEGATIVE Basic Metabolic Panel 08/04/2019 [facility] - not interfac ed (315)- - Glucose 87 83-110 Blood Urea Nitrogen 10 7-18 Creatinine 1.08 0.70-1.30 Sodium 138 136-145 Potassium 4.2 3.5-5.1 Chloride 106 98-107 Carbon Dioxide 29 21-32 Calcium 8.9 8.2-9.6 GFR (Calculated) >60.0 >32 Laboratory test finding 08/04/2019 [facility] - not interf aced (315)- - C-Reactive Protein <0.30 CBC without Differential 08/04/2019 [facility] - not inter faced (315)- - White Blood Count 5.0 4.0-10.0 Red Blood Count 5.39 4.30-6.10 Platelets 226 172-450 Hemoglobin 17.2 Hematocrit 48.6 Procedures Date Code Description Status 12/16/2019 13754 Treadmill/Pharmacological Monito ring Completed 11/23/2019 33281 ECG 12-Lead Completed Medical Devices Description No [...] saldana MD 01/04/2020 I44.0 Atrioventricular block, first Cassandra MD 01/04/2020 R94.31 Abnormal electrocardiogram [ECG] [EKG] Storm Somers MD 12/16/2019 R07.2 Precordial pain Stress Nuclear/R eg Treadmill 12/16/2019 R06.00 Dyspnea, unspecified Stress Nucl ear/Reg Treadmill 12/16/2019 R94.31 Abnormal electrocardiogram [ECG] [EKG] Stress Nuclear/Reg Treadmill 12/16/2019 I44.0 Atrioventricular block, first michaud Stress Nuclear/Reg Treadmill 11/23/2019 R07.2 Precordial pain [...] VALID 08/01/19 - 01/28/20. [place] [address] [facility] [id number] [phone] Storm Somers MD 3 OV VALID 08/01/19 - 07/31/20. [place] [address] [facility] [id number] [phone]
--- OUTSIDE RECORDS SUMMARY | 2020-03-08 02:24 | CCD ---
Author Author [facility] Organization [facility] Address Unknown Phone Unavailable Care Team Providers Care Cement Gun Operator Name Role Phone Vitaliy ANTUNEZ MD Unavailable Unavailable Vitaliy ANTUNEZ MD Unavailable Unavailable Vitaliy ANTUNEZ MD Unavailable Unavailable Vitaliy ANTUNEZ MD Unavailable Unavailable Vitaliy ANTUNEZ MD Unavailable Unavailable Vitaliy ANTUNEZ MD Unavailable Unavailable Vitaliy ANTUNEZ MD Unavailable Unavailable Vitaliy ANTUNEZ MD Unavailable Unavailable Vitaliy ANTUNEZ MD Unavailable Unavailable Vitaliy ANTUNEZ MD Unavailable Unavailable Vitaliy ANTUNEZ MD Unavailable Unavailable Vitaliy ANTUNEZ MD Unavailable Unavailable Vitaliy ANTUNEZ MD Unavailable Unavailable Vitaliy ANTUNEZ MD Unavailable Unavailable Vitaliy ANTUNEZ MD Unavailable Unavailable Vitaliy ANTUNEZ MD Unavailable Unavailable Vitaliy ANTUNEZ MD Unavailable Unavailable Vitaliy ANTUNEZ MD Unavailable Unavailable Vitaliy ANTUNEZ MD Unavailable Unavailable Vitaliy ANTUNEZ MD Unavailable Unavailable Vitaliy ANTUNEZ MD Unavailable Unavailable Vitaliy ANTUNEZ MD Unavailable Unavailable Vitaliy ANTUNZE MD Unavailable Unavailable Vitaliy ANTUNEZ MD Unavailable Unavailable Vitaliy ANTUNEZ MD Unavailable Unavailable Vitaliy ANTUNEZ MD Unavailable Unavailable Vitaliy ANTUNEZ MD Unavailable Unavailable Vitaliy ANTUNEZ MD Unavailable Unavailable Vitaliy ANTUNEZ MD Unavailable Unavailable Vitaliy ANTUNEZ MD Unavailable Unavailable Vitaliy ANTUNEZ MD Unavailable Unavailable Vitaliy ANTUNEZ MD Unavailable Unavailable Vitaliy ANTUNEZ MD Unavailable Unavailable Vitaliy ANTUNEZ MD Unavailable Unavailable Vitaliy ANTUNEZ MD Unavailable Unavailable Vitaliy ANTUNEZ MD Unavailable Unavailable Vitaliy ANTUNEZ MD Unavailable Unavailable Vitaliy ANTUNEZ MD Unavailable Unavailable Vitaliy ANTUNEZ MD Unavailable Unavailable ANTUNEZ, E CAHRLES MD Unavailable Unavailable ANTUNEZ, E CHARLES MD Unavailable Unavailable ANTUNEZ, E CHARLES MD Unavailable Unavailable ANTUNEZ, E CHARLES MD Unavailable Unavailable ANTUNEZ, E CHARLES MD Unavailable Unavailable ANTUNEZ, E CHARLES MD Unavailable Unavailable ANTUNEZ, E CHARLES MD Unavailable Unavailable ANTUNEZ, E CHARLES MD Unavailable Unavailable ANTUNEZ, E CHARLES MD Unavailable Unavailable ANTUNEZ, E CHARLES MD Unavailable Unavailable ANTUNEZ, E CHARLES MD Unavailable Unavailable ANTUNEZ, E CHARLES MD Unavailable Unavailable ANTUNEZ, E CHARLES MD Unavailable Unavailable ANTUNEZ, E CHARLES MD Unavailable Unavailable ANTUNEZ, E CHARLES MD Unavailable Unavailable ANTUNEZ, E CHARLES MD Unavailable Unavailable ANTUNEZ, E CHARLES MD Unavailable Unavailable ANTUNEZ, E CHARLES MD Unavailable Unavailable Re-disclosure Warning The records that you are about to access may contain information from federally-assisted alcohol or drug abuse programs. If such information is present, then the following federally mandated warning applies: This information has been disclosed to you from records protected by federal confidentiality rules (42 CFR part 2). The federal rules prohibit you from making any further disclosure of this information unless further disclosure is expressly permitted by the written consent of the person to whom it pertains or as otherwise permitted by 42 CFR part 2. A general authorization for the release of medical or other information is NOT sufficient for this purpose. The Federal rules restrict any use of the information to criminally investigate or prosecute any alcohol or drug abuse patient.The records that you are about to access may contain highly sensitive health information, the redisclosure of which is protected by Article 27-F of the [facility] Public Health law. If you continue you may have access to information: Regarding HIV / AIDS; Provided by facilities licensed or operated by the [facility] Office of Mental Health; or Provided by the [facility] Office for People With Developmental Disabilities. If such information is present, then the following [facility] mandated warning applies: This information has been disclosed to you from confidential records which are protected by state law. State law prohibits you from making any further disclosure of this information without the specific written consent of the person to whom it pertains, or as otherwise permitted by law. Any unauthorized further disclosure in violation of state law may result in a fine or fpc sentence or both. A general authorization for the release of medical or other information is NOT sufficient authorization for further disc losure. Encounters Encounter Providers Location Date Indications Data Source(s ) Outpatient Attender: CHARLES ANTUNEZ MD Main Office 01/04/2020 07:00:00 AM EST [facility] ([facility]) Outpatient Attender: CHARLES ANTUNEZ MD Main Office 11/23/2019 11:00:00 AM EDT [facility] ([facility]) Medications Medication Brand Name Start Date Product Form Dose Route Admi nistrative Instructions Pharmacy Instructions Status Indications Reaction Description Data Source(s) meloxicam 15 MG Oral Tablet Meloxicam 11/23/2019 12:00:00 AM EDT ORAL active [facility] ([facility]) Omeprazole 40 MG Delayed Release Oral Capsule Omeprazole 11/23/2019 12:00:00 AM EDT ORAL active [facility] ([facility]) No Active Medications 11/23/2019 12:00:00 AM EDT completed [facility] ([facility]) Insurance Providers Payer name Policy type / Coverage type Policy ID Covered green party ID Covered green party's relationship to koch Policy Koch Plan Information [facility] [employer] [id number] SP [id number] [facility] [employer] [id number] SP [id number] Problems, Conditions, and Diagnoses Code Display Name Description Problem Type Effective Dates Data Source(s) 071789002 Dyspnea Dyspnea Problem 11/23/2019 12:00:00 AM ED T [facility] ([facility]) [id number] First degree atrioventricular block Firs t degree atrioventricular block Problem 11/23/2019 12:00:00 AM EDT [facility] ([facility]) [id number] Electrocardiogram abnormal Electrocardiogram abnormal Problem 11/23/2019 12:00:00 AM EDT [facility] ([facility]) [id number] Precordial pain Precordial pain Problem 11/23/2019 12:0 0:00 AM EDT [facility] ([facility]) Surgeries/Procedures Procedure Description Date Indications Data Source(s) CV STRS TST XERS&/OR RX CONT ECG PHYS SI&R 12/16/2019 12:00:00 AM EDT [facility] ([facility]) ECG ROUTINE ECG W/LEAST 12 LDS W/I&R 11/23/2019 12:00: 00 AM EDT [facility] ([facility]) Results ID Date Data Source [id number] 11/23/2019 12:15:00 PM EDT [facility] Name Value Range Interpretation Code Description Data Marie rce(s) Supporting Document(s) Rheumatoid factor [Units/volume] in Serum or Plasma Laboratory test result [facility] ([facility]) ID Date Data Source [id number] 11/23/2019 12:15:00 PM EDT [facility] ([facility]) Name Value Range Interpretation Code Description Data Marie rce(s) Supporting Document(s) Erythrocyte sedimentation rate by Westergren method 1 [facility]) ID Date Data Source [id number] 11/23/2019 12:15:00 PM EDT [facility] ([facility]) Name Value Range Interpretation Code Description Data Marie rce(s) Supporting Document(s) Hematocrit [Volume Fraction] of Blood by Automated count 46.7 [facility] ([facility]) Hemoglobin [Mass/volume] in Blood 15.9 [facility] ([facility]) Erythrocyte mean corpuscular hemoglobin concentration [Mass/volume] by Automated count 34.0 [facility] Erythrocyte mean corpuscular volume [Entitic volume] by Automate d count 92.6 [facility] ([facility]) Erythrocyte mean corpuscular hemoglobin [Entitic mass] by Au tomated count 31.4 [facility] ([facility]) Platelet mean volume [Entitic volume] in Blood by Kelsy 8.1 [facility] ([facility]) Platelets [#/volume] in Blood by Automated count [address] [facility] [address]) Erythrocyte distribution width [Ratio] by Automated count 14.0 [facility] ([facility]) Lymphocytes/100 leukocytes in Body fluid by Manual count 53.0 [facility] ([facility]) Band form neutrophils/100 leukocytes in Body fluid by Manual count Laboratory test result [facility]) Neutrophils 31.8 [facility] ([facility]) Monocytes 11.5 [facility] Basophils/100 leukocytes in Blood 0.80 [facility] ([facility]) Fluid Body Eosinophils 2.90 [facility] ([facility]) Basophils [#/volume] in Blood by Automated count 0.00 [facility] ([facility]) Eosinophils [#/volume] in Blood by Automated count 0.10 [facility] ([facility]) Lymphocytes [#/volume] in Blood 2.30 [facility] ([facility]) Neutrophils [#/volume] in Blood by Automated count 1.40 [facility] ([facility]) Monocytes [#/volume] in Blood 0.50 [facility] ([facility]) ID Date Data Source [id number] 08/04/2019 12:10:00 PM EDT [facility] ([facility]) Name Value Range Interpretation Code Description Data Marie rce(s) Supporting Document(s) White Blood Count 5.0 4.0-10.0 [facility]) Hemoglobin 17.2 [facility] ([facility]) Red Blood Count 5.39 4.30-6.10 [facility]) Platelets 226 172-450 [facility] Hematocrit 48.6 [facility] ([facility]) ID Date Data Source [id number] 08/04/2019 12:10:00 PM EDT [facility] Name Value Range Interpretation Code Description Data Marie rce(s) Supporting Document(s) C-Reactive Protein Laboratory test result [facility] ([facility]) ID Date Data Source [id number] 08/04/2019 12:10:00 PM EDT [facility] Name Value Range Interpretation Code Description Data Marie rce(s) Supporting Document(s) Blood Urea Nitrogen 10 7-18 [facility] Glucose 87 83-110 [facility] Sodium 138 136-145 [facility] Creatinine 1.08 0.70-1.30 [facility] ([facility]) Potassium 4.2 3.5-5.1 [facility] Chloride 106 98-107 [facility] Glomerular filtration rate/1.73 sq M.pre dicted [Volume Rate/Area] in Serum or Plasma by Creatinine-based formula (MDRD) Laboratory test result [facility] ([facility]) Calcium 8.9 8.2-9.6 [facility] Carbon Dioxide 29 21-32 [facility]) Procedure Social History Code Duration Value Status Description Data Source(s ) Smoking 11/23/2019 12:00:00 AM EDT Patient has never smoked co mpleted Patient has never smoked [facility] ([facility]) Vital Signs ID Date Data Source UNK Name Value Range Interpretation Code Description Data Source(s) Diastolic blood pressure--supine 56 mm[Hg] 56 mm[Hg] [facility] ([facility]) Systolic blood pressure--supine 92 mm[Hg] 92 m m[Hg] [facility]) Diastolic blood pressure--sitting 56 mm[Hg] 56 mm[Hg] [facility] ([facility]) Medium cuff, Ra Systolic blood pressure--sitting 103 mm[Hg] 103 mm[Hg] [facility] ([facility]) Medium cuff, Ra Respiratory rate 16 /min 16 /min [facility] ( [facility]) Heart rate 72 /min 72 /min [facility] ([facility]) regular Body mass index (BMI) [Ratio] 20.7 kg/m2 20.7 k g/m2 [facility] ([facility]) Body height 66 [in_i] 66 [in_i] [facility]) 5'6" Body weight 128.00 [lb_av] 128.00 [lb_av] [facility] ([facility]) Oxygen saturation in Arterial blood by Pulse oximetry --post exerci se 98 % 98 % [facility] ([facility]) Oxygen saturation in Arterial blood by Pulse oximetry 97 % 97 % [facility] ([facility]) Diastolic blood pressure--supine 68 mm[Hg] 68 mm[Hg] [facility] ([facility]) Rad Systolic blood pressure--supine 108 mm[Hg] 108 mm[Hg] [facility] ([facility]) Rad Diastolic blood pressure--sitting 72 mm[Hg] 72 mm[Hg] [facility] ([facility]) Medium cuff, Ra; 110/74 LA Systolic blood pressure--sitting 112 mm[Hg] 112 mm[Hg] [facility] ([facility]) Medium cuff, Ra; 110/74 LA Respiratory rate 16 /min 16 /min [facility] ( [facility]) Heart rate 76 /min 76 /min [facility]) regular Body mass index (BMI) [Ratio] 22.8 kg/m2 22.8 k g/m2 [facility] ([facility]) Body height 66 [in_i] 66 [in_i] [facility]) 5'6" Body weight 141.00 [lb_av] 141.00 [lb_av] [facility] T ([facility])
--- NOTE | 2020-03-08 02:50 | REPVR ---
PROCEDURE INFORMATION: Exam: XR Chest, 2 Views Exam date and time: 03/08/2020 2:45 AM Age: 24 years old Clinical indication: Chest pain; Type not specified TECHNIQUE: Imaging protocol: XR of the chest Views: 2 views. COMPARISON: CT Chest with contrast 08/02/2019 12:47 PM FINDINGS: Lungs: Unremarkable. No consolidation. Pleural space: Unremarkable. No pleural effusion. No pneumothorax. Heart/Mediastinum: Unremarkable. No cardiomegaly. Bones/joints: Slight anterior wedge configuration of T11 and T12 which appear to be developmental. IMPRESSION: Negative chest. Electronically signed by: Rob Ramos On 03/08/2020 02:50:20 AM
[2020-03-08] MEDS ORDERED: KETOROLAC 30 MG/ML 1ML VIAL IV ONE (03:30)
--- OUTSIDE RECORDS SUMMARY | 2020-03-08 03:31 | CCD ---
Author Author [facility] Organization [facility] Address Unknown Phone Unavailable Care Team Providers Care Park Worker Name Role Phone Vitaliy ANTUNEZ MD Unavailable [...] Unavailable Vitaliy ANTUNEZ MD Unavailable Unavailable Vitaliy ANTUENZ MD Unavailable Unavailable Vitaliy ANTUNEZ MD Unavailable Unavailable Vitaliy ANTUNEZ MD Unavailable Unavailable ANTUNEZ, E CHARLES MD [...] is protected by Article 27-F of the [facility] Public Health law. If you continue you may have access to information: Regarding HIV / AIDS; Provided by facilities licensed or operated by the [facility] Office of Mental Health; or Provided by the [facility] Office for People With Developmental Disabilities. If such information is present, then the following [facility] mandated warning applies: This information has [...] law may result in a fine or intermediate sentence or both. A general authorization for the release of medical or other information is NOT sufficient authorization for further disc losure. Encounters Encounter Providers Location Date Indications Data Source(s ) Outpatient Attender: CHARLES ANTUNEZ MD Main Office 01/04/2020 07:00:00 AM EST [facility] ([facility]) Outpatient Attender: CHARLES ANTUNEZ MD Main Office 11/23/2019 11:00:00 AM EDT [facility] ([facility]) Medications Medication Brand Name Start Date Product Form Dose Route Admi nistrative Instructions Pharmacy Instructions Status Indications Reaction Description Data Source(s) meloxicam 15 MG Oral Tablet Meloxicam 11/23/2019 12:00:00 AM EDT ORAL active [facility] ([facility]) Omeprazole 40 MG Delayed Release Oral Capsule Omeprazole 11/23/2019 12:00:00 AM EDT ORAL active [facility] ([facility]) No Active Medications 11/23/2019 12:00:00 AM EDT completed [facility] ([facility]) Insurance Providers Payer name Policy type / Coverage type Policy ID Covered green party ID Covered green party's relationship to koch Policy Koch Plan Information [facility] [employer] [id number] SP [id number] [facility] [employer] [id number] SP [id number] Problems, Conditions, and Diagnoses Code Display Name Description Problem Type Effective Dates Data Source(s) 218479480 Dyspnea Dyspnea Problem 11/23/2019 12:00:00 AM ED T [facility] ([facility]) [id number] First degree atrioventricular block Firs t degree atrioventricular block Problem 11/23/2019 12:00:00 AM EDT [facility] ([facility]) [id number] Electrocardiogram abnormal Electrocardiogram abnormal Problem 11/23/2019 12:00:00 AM EDT [facility] ([facility]) [id number] Precordial pain Precordial pain Problem 11/23/2019 12:0 0:00 AM EDT [facility] ([facility]) Surgeries/Procedures Procedure Description Date Indications Data Source(s) CV STRS TST XERS&/OR RX CONT ECG PHYS SI&R 12/16/2019 12:00:00 AM EDT [facility] ([facility]) ECG ROUTINE ECG W/LEAST 12 LDS W/I&R 11/23/2019 12:00: 00 AM EDT [facility] ([facility]) Results ID Date Data Source [id number] 11/23/2019 12:15:00 PM EDT [facility] ([facility] Name Value Range Interpretation Code Description Data Marie rce(s) Supporting Document(s) Rheumatoid factor [Units/volume] in Serum or Plasma Laboratory test result [facility] ([facility]) ID Date Data Source [id number] 11/23/2019 12:15:00 PM EDT [facility] ([facility]) Name Value Range Interpretation Code Description Data Marie rce(s) Supporting Document(s) Erythrocyte sedimentation rate by Westergren method 1 [facility] ([facility]) ID Date Data Source [id number] 11/23/2019 12:15:00 PM EDT [facility] ([facility]) Name Value Range Interpretation Code Description Data Marie rce(s) Supporting Document(s) Hematocrit [Volume Fraction] of Blood by Automated count 46.7 [facility] ([facility]) Hemoglobin [Mass/volume] in Blood 15.9 [facility] ([facility]) Erythrocyte mean corpuscular hemoglobin concentration [Mass/volume] by Automated count 34.0 [facility] ([facility] Erythrocyte mean corpuscular volume [Entitic volume] by Automate d count 92.6 [facility] ([facility]) Erythrocyte mean corpuscular hemoglobin [Entitic mass] by Au tomated count 31.4 [facility] ([facility]) Platelet mean volume [Entitic volume] in Blood by Kelsy 8.1 [facility] ([facility]) Platelets [#/volume] in Blood by Automated count 211 [facility] ([facility]) Erythrocyte distribution width [Ratio] by Automated count 14.0 [facility] ([facility]) Lymphocytes/100 leukocytes in Body fluid by Manual count 53.0 [facility] ([facility]) Band form neutrophils/100 leukocytes in Body fluid by Manual count Laboratory test result [facility] ([facility]) Neutrophils 31.8 [facility] ([facility]) Monocytes 11.5 [facility] Basophils/100 leukocytes in Blood 0.80 [facility] ([facility]) Fluid Body Eosinophils 2.90 [facility] ([facility]) Basophils [#/volume] in Blood by Automated count 0.00 [facility] ([facility]) Eosinophils [#/volume] in Blood by Automated count 0.10 [facility] ([facility]) Lymphocytes [#/volume] in Blood 2.30 [facility] ([facility]) Neutrophils [#/volume] in Blood by Automated count 1.40 [facility] ([facility]) Monocytes [#/volume] in Blood 0.50 [facility] ([facility]) ID Date Data Source [id number] 08/04/2019 12:10:00 PM EDT [facility] ([facility]) Name Value Range Interpretation Code Description Data Marie rce(s) Supporting Document(s) White Blood Count 5.0 4.0-10.0 [facility] ([facility]) Hemoglobin 17.2 [facility] ([facility]) Red Blood Count 5.39 4.30-6.10 [facility] ([facility]) Platelets 226 172-450 [facility] Hematocrit 48.6 [facility] ([facility]) ID Date Data Source [id number] 08/04/2019 12:10:00 PM EDT [facility] Name Value Range Interpretation Code Description Data Marie rce(s) Supporting Document(s) C-Reactive Protein Laboratory test result [facility] ([facility]) ID Date Data Source [id number] 08/04/2019 12:10:00 PM EDT [facility] Name Value Range Interpretation Code Description Data Marie rce(s) Supporting Document(s) Blood Urea Nitrogen 10 7-18 [facility] ([facility] Glucose 87 83-110 [facility] Sodium 138 136-145 [facility] Creatinine 1.08 0.70-1.30 [facility] ([facility]) Potassium 4.2 3.5-5.1 [facility] Chloride 106 98-107 [facility] Glomerular filtration rate/1.73 sq M.pre dicted [Volume Rate/Area] in Serum or Plasma by Creatinine-based formula (MDRD) Laboratory test result [facility] ([facility]) Calcium 8.9 8.2-9.6 [facility] Carbon Dioxide 29 21-32 [facility] ([facility]) Procedure Social History Code Duration Value Status Description Data Source(s ) Smoking 11/23/2019 12:00:00 AM EDT Patient has never smoked co mpleted Patient has never smoked [facility] ([facility]) Vital Signs ID Date Data Source UNK Name Value Range Interpretation Code Description Data Source(s) Diastolic blood pressure--supine 56 mm[Hg] 56 mm[Hg] [facility] ([facility]) Systolic blood pressure--supine 92 mm[Hg] 92 m m[Hg] [facility] ([facility]) Diastolic blood pressure--sitting 56 mm[Hg] 56 mm[Hg] [facility] ([facility]) Medium cuff, Ra Systolic blood pressure--sitting 103 mm[Hg] 103 mm[Hg] [facility] ([facility]) Medium cuff, Ra Respiratory rate 16 /min 16 /min [facility] ( [facility]) Heart rate 72 /min 72 /min [facility] ([facility]) regular Body mass index (BMI) [Ratio] 20.7 kg/m2 20.7 k g/m2 [facility] ([facility]) Body height 66 [in_i] 66 [in_i] [facility]) 5'6" Body weight 128.00 [lb_av] 128.00 [lb_av] [facility] ([facility]) Oxygen saturation in Arterial blood by Pulse oximetry --post exerci se 98 % 98 % [facility] ([facility]) Oxygen saturation in Arterial blood by Pulse oximetry 97 % 97 % [facility] ([facility]) Diastolic blood pressure--supine 68 mm[Hg] 68 mm[Hg] [facility] ([facility]) Rad Systolic blood pressure--supine 108 mm[Hg] 108 mm[Hg] [facility] ([facility]) Rad Diastolic blood pressure--sitting 72 mm[Hg] 72 mm[Hg] [facility] ([facility]) Medium cuff, Ra; 110/74 LA Systolic blood pressure--sitting 112 mm[Hg] 112 mm[Hg] [facility] ([facility]) Medium cuff, Ra; 110/74 LA Respiratory rate 16 /min 16 /min [facility] ( [facility]) Heart rate 76 /min 76 /min [facility] ([facility]) regular Body mass index (BMI) [Ratio] 22.8 kg/m2 22.8 k g/m2 [facility] ([facility]) Body height 66 [in_i] 66 [in_i] [facility]) 5'6" Body weight 141.00 [lb_av] 141.00 [lb_av] [facility] T ([facility])
[2020-03-08 03:42] LABS: HEMATOCRIT 45.4 % (42.0-52.0); HEMOGLOBIN 15.4 g/dl (13.5-17.5); MEAN CORPUSCULAR HEMOGLOBIN 30.6 pg (27.0-33.0); MEAN CORPUSCULAR HGB CONC 33.9 g/dl (32.0-36.5); MEAN CORPUSCULAR VOLUME 90.1 fl (80.0-96.0); PLATELET COUNT, AUTOMATED 215 10^3/uL (150-450); RED BLOOD COUNT 5.04 10^6/uL (4.30-6.10); WHITE BLOOD COUNT 3.8 10^3/uL (4.0-10.0)
[2020-03-08 04:23] LABS: BLOOD UREA NITROGEN 12 MG/DL (7-18); CALCIUM LEVEL 8.8 MG/DL (8.5-10.1); CARBON DIOXIDE LEVEL 28 MEQ/L (21-32); CHLORIDE LEVEL 104 MEQ/L (98-107); CPK CREATINE PHOSPHOKINASE 703 U/L (39-308); CREATININE FOR GFR 1.22 MG/DL (0.70-1.30); GLOMERULAR FILTRATION RATE > 60.0 (>60); GLUCOSE, FASTING 94 MG/DL (70-100); MB/CK RELATIVE INDEX 0.14 (< OR =4); POTASSIUM SERUM 4.2 MEQ/L (3.5-5.1); SODIUM LEVEL 139 MEQ/L (136-145)
[2020-03-08 04:50] LABS: TROPONIN I < 0.02 NG/ML (< 0.10)
[2020-03-08 05:14] VITALS: BP 118/70
--- NOTE | 2020-03-08 08:18 | ECGEPIP ---
[facility] - ED Test Date: 2020-03-08 Pat Name: MICHEAL BOURGEOIS Department: Room: - Gender: Male Visual Merchandising Associate: ARIES : 1995 Requested By: DARCIE Lemon Order Number: [id number] Reading MD: Ray Kearney Measurements Intervals [place] Rate: 58 P: 70 [place]: 216 QRS: 81 QRSD: 96 T: 57 QT: 403 QTc: 398 Interpretive Statements SINUS BRADYCARDIA WITH FIRST DEGREE AV BLOCK BENIGN EARLY REPOLARIZATION SIMILAR TO 08/02/19 Electronically Signed on 03-08-2020 8:18:01 EST by Ray Kearney
== END 2020-03-08 05:24 | disposition home or self-care (01) ==
LOC: M ED 02:14
DX: R07.9 Chest pain, unspecified (principal)
CPT/HCPCS: 71046; 80048; 82550; 82553; 84484; 85027; 93005; 96374; 99284; J1885

== ENCOUNTER → 2020-05-09 | Outpatient (REF) | payer OTHER ==
[2020-05-09 18:22] LABS: C REACTIVE PROTEIN QUANTITATIV < 0.30 MG/DL (0.00-0.30)
[2020-05-09 19:03] LABS: CA19-9 TUMOR MARKER,CARBOHYDRA < 1.2 U/ML (<35.0)
== END ==
LOC: M LAB REF 16:44
PROVIDERS: ATTEND Internal Medicine Pulmonary Disease
DX: R07.89 Other chest pain (principal)

== ENCOUNTER → 2020-06-01 | Outpatient (CLI) | payer OTHER ==
[~2020-06-01] MED LIST changes: +METHACHOLINE KIT (J7674) INH ONE
--- NOTE | 2020-06-01 15:26 | PFTRPT ---
Height: 66.50 Inches Weight: 140.00 Lbs BSA: 1.73 Diagnosis: R06.02 DATE: 06/01/2020 ORDERED BY: Jin Sarmiento D.O. QUALITY: Study of excellent technical quality. PROCEDURE: Under protocol, methacholine was administered. At a dose of 2.5 mg or 13.875 CDUs, a 48% decline in the FEV1 was noted. PC of 0.54 is significant. Flow rates did return to baseline post bronchodilator administration. IMPRESSION: Positive methacholine challenge study. MTDD
== END ==
LOC: M CARPUL 05-24 13:02
PROVIDERS: ATTEND Internal Medicine Pulmonary Disease
DX: R06.02 Shortness of breath (principal)
CPT/HCPCS: 94070; J7674

== ENCOUNTER 2020-07-07 22:55 | Emergency (ER) | payer OTHER ==
[~2020-07-07] VITALS: Ht 167.6 cm; Wt 58.2 kg
[~2020-07-07 22:55] MED LIST changes: -METHACHOLINE KIT (J7674) INH ONE
[2020-07-07 22:56] VITALS: BP 111/59
[2020-07-08] MEDS ORDERED: PROAAER10 INH (10:41)
== END 2020-07-08 01:52 | disposition left against medical advice (07) ==
LOC: M ED 22:55
DX: Z53.21 Procedure and treatment not carried out due to patient leaving prior to being seen by health care provider (principal)

== ENCOUNTER 2020-07-08 10:33 | Emergency (ER) | payer OTHER ==
[~2020-07-08] VITALS: Ht 167.6 cm; Wt 58.4 kg
[2020-07-08] MEDS ORDERED: PROAAER10 INH (10:41)
[2020-07-08] MEDS ORDERED: NS 1,000 ML IV ONE (12:10)
[2020-07-08 12:37] LABS: BASO % 0.5 % (0.0-1.0); EOS % 0.5 % (0.0-3.0); HEMATOCRIT 48.7 % (42.0-52.0); LYMPH # 0.8 10^3/uL (1.5-5.0); LYMPH % 18.6 % (24.0-44.0); MEAN CORPUSCULAR HEMOGLOBIN 31.2 pg (27.0-33.0); MEAN CORPUSCULAR HGB CONC 34.9 g/dl (32.0-36.5); MEAN CORPUSCULAR VOLUME 89.4 fl (80.0-96.0); MONO # 0.4 10^3/uL (0.0-0.8); MONO % 10.5 % (2.0-8.0); NEUTROPHILS # 2.8 10^3/uL (1.5-8.5); NEUTROPHILS % 69.7 % (36.0-66.0); PLATELET COUNT, AUTOMATED 184 10^3/uL (150-450); RED BLOOD COUNT 5.45 10^6/uL (4.30-6.10); WHITE BLOOD COUNT 4.1 10^3/uL (4.0-10.0)
[2020-07-08 12:56] LABS: ALBUMIN 4.5 GM/DL (3.2-5.2); ALT/SGPT 20 U/L (12-78); BILIRUBIN,DIRECT 0.3 MG/DL (0.0-0.2); BILIRUBIN,TOTAL 1.5 MG/DL (0.2-1.0); BLOOD UREA NITROGEN 14 MG/DL (7-18); CALCIUM LEVEL 8.8 MG/DL (8.5-10.1); CARBON DIOXIDE LEVEL 30 MEQ/L (21-32); CHLORIDE LEVEL 103 MEQ/L (98-107); CREATININE FOR GFR 1.12 MG/DL (0.70-1.30); GLOMERULAR FILTRATION RATE > 60.0 (>60); GLUCOSE, FASTING 90 MG/DL (70-100); LIPASE 182 U/L (73-393); POTASSIUM SERUM 3.6 MEQ/L (3.5-5.1); SODIUM LEVEL 137 MEQ/L (136-145); TOTAL PROTEIN 7.9 GM/DL (6.4-8.2)
[2020-07-08 13:14] VITALS: BP 116/74
== END 2020-07-08 14:04 | disposition home or self-care (01) ==
LOC: M ED 10:33
DX: R11.2 Nausea with vomiting, unspecified (principal); R19.7 Diarrhea, unspecified; J45.909 Unspecified asthma, uncomplicated; Z79.51 Long term (current) use of inhaled steroids

== ENCOUNTER 2020-08-23 19:05 | Emergency (ER) | payer OTHER ==
[~2020-08-23] VITALS: Ht 170.2 cm; Wt 58.8 kg
[~2020-08-23 19:05] MED LIST changes: +PROAAER10 INH
[2020-08-24 00:12] LABS: ALBUMIN 4.3 GM/DL (3.2-5.2); ALT/SGPT 18 U/L (12-78); BASO % 0.4 % (0.0-1.0); BILIRUBIN,DIRECT 0.2 MG/DL (0.0-0.2); BILIRUBIN,TOTAL 0.6 MG/DL (0.2-1.0); BLOOD UREA NITROGEN 9 MG/DL (7-18); CALCIUM LEVEL 8.8 MG/DL (8.5-10.1); CARBON DIOXIDE LEVEL 34 MEQ/L (21-32); CHLORIDE LEVEL 100 MEQ/L (98-107); CREATININE FOR GFR 1.12 MG/DL (0.70-1.30); EOS # 0.1 10^3/uL (0.0-0.5); EOS % 0.6 % (0.0-3.0); GLOMERULAR FILTRATION RATE > 60.0 (>60); GLUCOSE, FASTING 96 MG/DL (70-100); HEMATOCRIT 46.9 % (42.0-52.0); LIPASE 115 U/L (73-393); LYMPH # 1.3 10^3/uL (1.5-5.0); LYMPH % 15.7 % (24.0-44.0); MEAN CORPUSCULAR HEMOGLOBIN 31.1 pg (27.0-33.0); MEAN CORPUSCULAR HGB CONC 34.1 g/dl (32.0-36.5); MEAN CORPUSCULAR VOLUME 91.1 fl (80.0-96.0); MONO # 0.7 10^3/uL (0.0-0.8); MONO % 9.1 % (2.0-8.0); PLATELET COUNT, AUTOMATED 205 10^3/uL (150-450); POTASSIUM SERUM 3.9 MEQ/L (3.5-5.1); RED BLOOD COUNT 5.15 10^6/uL (4.30-6.10); SODIUM LEVEL 136 MEQ/L (136-145); TOTAL PROTEIN 8.1 GM/DL (6.4-8.2); WHITE BLOOD COUNT 8.1 10^3/uL (4.0-10.0)
[2020-08-24] MEDS ORDERED: KETOROLAC 30 MG/ML 1ML VIAL IV ONE (00:30)
[2020-08-24] MEDS ORDERED: NS 1,000 ML IV ONE (00:30)
[2020-08-24 00:55] LABS: CK-MB VALUE MASS < 1.0 NG/ML (<3.6); CPK CREATINE PHOSPHOKINASE 181 U/L (39-308); MB/CK RELATIVE INDEX 0.55 (< OR =4)
--- NOTE | 2020-08-24 01:56 | REPVR ---
PROCEDURE INFORMATION: Exam: CT Abdomen And Pelvis Without Contrast Exam date and time: 08/24/2020 12:42 AM Age: 25 years old Clinical indication: Abdominal pain; Localized; Left; Additional info: L flank pain radiating into testicle, hematuria, RO stone TECHNIQUE: Imaging protocol: Computed tomography of the abdomen and pelvis without contrast. Radiation optimization: All CT scans at this facility use at least one of these dose optimization techniques: automated exposure control; mA and/or kV adjustment per patient size (includes targeted exams where dose is matched to clinical indication); or iterative reconstruction. COMPARISON: CT Chest with contrast 08/02/2019 12:47 PM FINDINGS: Lungs: No suspicious mass or airspace process in the visualized lung bases. Liver: Noncontrast liver shows no obvious lesion. Gallbladder and bile ducts: Gallbladder is contracted and not well evaluated. Pancreas: Noncontrast pancreas shows no obvious mass or adjacent fluid. Spleen: Noncontrast spleen shows no obvious focal deformity. Adrenal glands: Adrenal glands are normal in appearance. Kidneys and ureters: Kidneys show no stone or hydronephrosis. Stomach and bowel: No evidence of small bowel obstruction. Appendix: Appendix is not seen. No RLQ inflammation to suggest appendicitis. Intraperitoneal space: No pneumoperitoneum. Vasculature: No aortic aneurysm. Lymph nodes: No bulky adenopathy. Urinary bladder: Urinary bladder appears normal. Reproductive: No overt enlargement of the prostate gland. Bones/joints: Bony structures show no acute fracture or destructive process. Soft tissues: No concerning focal abnormality of the extra-abdominal and pelvic soft tissues. Other findings: Limited evaluation without enteric or IV contrast. IMPRESSION: No evidence of renal stone obstruction. No concerning bowel abnormality on limited non-contrast CT Electronically signed by: Chris Whitfield On 08/24/2020 01:55:55 AM
[2020-08-24 02:10] VITALS: BP 108/55
== END 2020-08-24 02:21 | disposition home or self-care (01) ==
LOC: M ED 19:05
DX: E86.0 Dehydration (principal); J45.909 Unspecified asthma, uncomplicated; Z87.442 Personal history of urinary calculi; Z87.440 Personal history of urinary (tract) infections; Z98.890 Other specified postprocedural states
CPT/HCPCS: 74176; 80048; 80076; 81001; 82553; 83690; 85025; 87880; 96374; 99284; J1885